=== PATIENT | male | born 1990 | race Caucasian/White ===

== ENCOUNTER 2021-08-24 23:10 | Emergency (ER) | payer MEDICAID, SELFPAY ==
[2021-08-24 23:41] VITALS: BP 156/103; PULSE 104; RESP 16; TEMP 37.1; O2SAT 96; BMI 27.9
[2021-08-25] MEDS: ONDANSETRON ODT 4 MG TAB 8 MG PO (01:48)
[2021-08-25] MEDS: GI COCKTAIL (VISC LIDO/ANTACID) 30 ML PO (01:58)
--- NOTE | 2021-08-25 04:38 | ED.GENADULT ---
HPI - General Adult General Date Seen: 08/25/21 Chief complaint: Nausea/Vomiting Stated complaint: THROAT INJURY,CONGESTION,VOMITING Time Seen by Provider: 08/24/21 23:27 Source: patient and family Mode of arrival: ambulatory Limitations: no limitations History of Present Illness HPI narrative: Patient is a 31-year-old male brought in by his father with complaints vomiting and pain in his throat. No fevers or chills. He did not have the pain prior to vomiting. He threw up two or 3 times and has continued to dry heave. No hematemesis or melena. He is a fairly heavy drinker but denies having any tonight. Related Data Home Medications Medication Instructions Recorded Confirmed No Known Home Medications 08/24/21 08/24/21 Allergies Allergy/AdvReac Type Severity Reaction Status Date / Time Penicillins Allergy Unknown Verified 08/24/21 23:46 Review of Systems Status of ROS: Reports: 10 or more systems reviewed and unremarkable except as noted in History and below [facility] Medical History (Updated 08/25/21 @ 01:21 by Antonio Man MD) Seasonal allergies Surgical History (Updated 08/24/21 @ 23:47 by Gia Hardy RN) [place] teeth extracted Exam Narrative: Exam Narrative: Vitals noted. He is tremulous. HEENT: Conjunctiva clear. Tympanic membranes are pearly white bilaterally. Posterior pharynx is clear without erythema or exudate. No sign of bleeding. Neck is supple without adenopathy, thyromegaly, carotid bruit. Lungs: Clear to auscultation in all [place]. No wheezes, rales, rhonchi. Heart: Regular rate and rhythm without murmur. Abdomen: Soft and nontender. No guarding, rigidity, rebound. Bowel sounds are normal. No palpable masses. Extremities: No cyanosis or edema. Good distal pulses. Skin: No abnormalities noted of the exposed skin. Neurologic: Awake, alert, fully oriented. Neurologic exam is nonfocal. Const: Vital Signs, click to edit/add: Vital Signs - 24 hr 08/24/21 23:41 Temperature 98.7 F Pulse Rate [Left P ulse Oximeter] 104 H Respiratory Rate 16 Blood Pressure [Ri ght Upper Arm] 156/103 H Pulse Oximetry 96 Documenting provider has reviewed patient's vital signs: yes Course Course Hospital Course: Patient is seen and examined. No diagnostic tests are needed. He is reassured by his normal exam. He is given a GI cocktail with near complete resolution of the pain in his throat. He had no further nausea or vomiting after receiving a dose of Zofran 8 mg orally. Vital Signs Vital signs: Initial Vital Signs Temperature 98.7 F 08/24/21 23:41 Temperature Source Temporal Artery Scan 08/24/21 23:41 Pulse Rate 104 H 08/24/21 23:41 Respiratory Rate 16 08/24/21 23:41 Blood Pressure 156/103 H 08/24/21 23:41 Blood Pressure Mean 120 08/24/21 23:41 Blood Pressure Position Sitting 08/24/21 23:41 Pulse Oximetry 96 08/24/21 23:41 Oxygen Delivery Method 08/24/21 23:41 Vital Signs Temperature 98.7 F 08/24/21 23:41 Pulse Rate 104 H 08/24/21 23:41 Respiratory Rate 16 08/24/21 23:41 Blood Pressure 156/103 H 08/24/21 23:41 Pulse Oximetry 96 08/24/21 23:41 Temperature 98.7 F 08/24/21 23:41 Pulse Rate 104 H 08/24/21 23:41 Respiratory Rate 16 08/24/21 23:41 Blood Pressure 156/103 H 08/24/21 23:41 Pulse Oximetry 96 08/24/21 23:41 Discharge Plan Discharge Clinical Impression: Indigestion, Nausea and vomiting Patient Disposition: Home w/ Parent or Adult Condition: Improved Instructions: Acute Nausea and Vomiting (ED), Indigestion (ED) Additional Instructions: Drink lots of ice water. [place] foods in frequent small amounts for the next 24 hours. Tylenol for pain. Follow-up in the clinic if symptoms are not improving over the next 24-48 hours. Activity Level: No Restrictions Prescriptions: No Action No Known Home Medications 0RF Follow Up/Referrals: Antonio Valentine MD [Referring] - Stand Alone Forms: [employer] Info Instructions
== END 2021-08-25 02:39 | disposition home or self-care (01) ==
PROVIDERS: Emergency Provider Family Medicine
DX: R11.2 Nausea with vomiting, unspecified (principal)
CPT/HCPCS: 99282; A9270